=== PATIENT | male | born 2000 | race Two or more races ===

== ENCOUNTER 2021-01-17 13:40 | Emergency (ER) | payer OTHER ==
[2021-01-17] MEDS ORDERED: cefTRIAXone 2 GM in Sodium Chloride 0.9% 100 ML IV ONE (14:21)
--- NOTE | 2021-01-17 14:23 | EDM.PDOC ---
ED HPI GENERAL MEDICAL PROBLEM - General Chief Complaint: Skin Complaint Stated Complaint: ABSCESS ON INNER THIGH Time Seen by Provider: 01/17/21 14:21 Source of Information: Reports: Patient History Limitations: Reports: No Limitations - History of Present Illness INITIAL COMMENTS - FREE TEXT/NARRATIVE: 20-year-old male of [place] descent presents to the ED with painful red swelling left groin for the last 4 days. He believes that this started from a spider bite on the inferior mid medial thigh and then seemed to spread upwards. Currently has an area of cellulitis of the entire proximal anterior thigh up to his left groin with development of an abscess in this area. It is painful to walk. He has not ate or drank today. He has had some fever and chills last evening. No nausea or vomiting. He has a smaller lesion which is drying up on the distal lateral aspect of his right leg. He is unsure of his tetanus vaccine is up-to-date. Onset Date: 01/14/21 Duration: Day(s):, Getting Worse Location: Reports: Lower Extremity, Left (Development of cellulitis and abscess left inguinal area proximal left thigh) Quality: Reports: Ache, Throbbing Severity: Moderate Improves with: Reports: Rest Worsens with: Reports: Other Context: Reports: Other (Spontaneous abscess development possibly related to spider bite). Denies: Activity, Exercise (Worse with walking and with clothing rubbing on it.), Lifting, Sick Contact, Trauma Associated Symptoms: Reports: Rash (Cellulitis). 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.) Left Groin Pain Score (Numeric/FACES): 8 - Related Data Allergies Allergy/AdvReac Type Severity Reaction Status Date / Time No Known Allergies Allergy Verified 01/17/21 13:53 Home Meds: Home Meds Clindamycin HCl 300 mg PO TID #21 capsule 01/17/21 [Rx] Doxycycline [Vibra-Tabs] 100 mg PO Q12HR #20 tab 01/17/21 [Rx] oxyCODONE HCl/Acetaminophen [Percocet 5-325 mg Tablet] 1 - 2 each PO Q4H PRN #15 tablet 01/17/21 [Rx] Past Medical History - Past Health History Medical/Surgical History: Denies Medical/Surgical History Social & Family History - Family History Family Medical History: No Pertinent Family History - Tobacco Use Tobacco Use Status *Q: Never Tobacco User - Caffeine Use Caffeine Use: Reports: Energy Drinks - Recreational Drug Use Recreational Drug Use: No - Living Situation & Occupation Living situation: Reports: Single Occupation: Employed ED ROS GENERAL - Review of Systems Review Of Systems: See Below Constitutional: Reports: Fever, Chills, Malaise, Fatigue, Decreased Appetite. Denies: Weakness, Weight Loss HEENT: Reports: No Symptoms Respiratory: Reports: No Symptoms Cardiovascular: Reports: No Symptoms Endocrine: Reports: Fatigue GI/Abdominal: Reports: No Symptoms : Reports: No Symptoms Musculoskeletal: Reports: No Symptoms Skin: Reports: No Symptoms Neurological: Reports: No Symptoms Psychiatric: Reports: No Symptoms Hematologic/Lymphatic: Reports: No Symptoms Immunologic: Reports: No Symptoms ED EXAM, SKIN/RASH Exam: See Below Exam Limited By: No Limitations General Appearance: Alert, WD/WN, No Apparent Distress, Other (Temperature is 37.0 degrees. Heart rate 115 and sinus at the bedside. Respiratory is 18 with O2 sats 100% room air BP 128/81.) Eye Exam: Bilateral Eye: Normal Inspection, PERRL Throat/Mouth: Normal Inspection, Normal Lips, Normal Teeth, Normal Oropharynx Head: Atraumatic, Normocephalic Neck: Normal Inspection, Supple, Non-Tender, Full Range of Motion. No: Lymphadenopathy (L), Lymphadenopathy (R) Respiratory/Chest: No Respiratory Distress, Lungs Clear, Normal Breath Sounds, No Accessory Muscle Use Cardiovascular: Normal Peripheral Pulses, No Edema, No Gallop (Cardiac arrest.), No Murmur, Tachycardia Peripheral Pulses: 3+: Carotid (L), Carotid (R), Posterior Tibial (L), Posterior Tibial (R), Dorsalis Pedis (L), Dorsalis Pedis (R) GI/Abdominal: Normal Bowel Sounds, Soft, Non-Tender, No Organomegaly, No Mass (Moderately obese.), Pelvis Stable, Other (No surgical scars) Back Exam: Normal Inspection, Full Range of Motion. No: CVA Tenderness (L), CVA Tenderness (R) Extremities: Normal Inspection, No Pedal Edema, Other (Patient has pain left inguinal area at site of abscess formation along the inguinal fold. The area is very erythematous above and below the inguinal area with cellulitis spreading down to the mid medial left thigh.) Neurological: Alert, Oriented, CN II-XII Intact, Normal Cognition Psychiatric: Normal Affect, Normal Mood Skin: Warm, Dry, Erythema (Proximal left thigh from medial aspect up above the inguinal fold to involve the lower abdominal wall), Increased Warmth ( due to cellulitis), Other (Possible abscess or induration approximately 9010 cm in length and 4 cm in width with is quite tender. Dark to black spots suggestive of insect bite likely a spider on the medial aspect and over the area of abscess left inguinal area. As described above) Location, Skin: Upper Extremity, Left Characteristics: Confluent Associated features: Warmth, Tenderness, Swelling, Induration, Inflammation Course - Vital Signs Last Recorded V/S: Last Vital Signs Temp 37.0 C 01/17/21 13:49 Pulse 115 H 01/17/21 13:49 Resp 18 01/17/21 13:49 BP 128/81 01/17/21 13:49 Pulse Ox 100 01/17/21 13:49 - Orders/Labs/Meds Orders: Active Orders 24 hr Category Date Time Status Vaccines to be Administered [RC] PER UNIT ROUTINE Care 01/17/21 14:42 Active Dextrose 5%-0.9% NaCl [Dextrose 5%-Normal Saline] 1,000 Med 01/17/21 14:30 Active ml IV ASDIRECTED Medication Orders Dextrose/Sodium Chloride (Dextrose 5%-Normal Saline) 1,000 mls @ 150 mls/hr IV ASDIRECTED YING Last Admin: 01/17/21 14:41 Dose: 150 mls/hr [facility] Labs: Laboratory Tests 01/17/21 01/17/21 Range/Units 14:30 14:30 WBC 12.20 H (4.23-9.07) K/mm3 RBC 5.28 (4.63-6.08) M/mm3 Hgb 14.4 (13.7-17.5) gm/dl Hct 44.6 (40.1-51.0) % MCV 84.5 (79.0-92.2) fl MCH 27.3 (25.7-32.2) pg MCHC 32.3 (32.2-35.5) g/dl RDW Std Deviation 42.6 (35.1-43.9) fL Plt Count 286 (163-337) K/mm3 MPV 10.0 (9.4-12.3) fl Neutrophils % (Manual) 77 H (40-60) % Band Neutrophils % 0 (0-10) % Lymphocytes % (Manual) 15 L (20-40) % Atypical Lymphs % 0 % Monocytes % (Manual) 8 (2-10) % Eosinophils % (Manual) 0 L (0.8-7.0) % Basophils % (Manual) 0 L (0.2-1.2) Platelet Estimate Adequate RBC Morph Comment Normal Sodium 138 (136-145) mEq/L Potassium 4.1 (3.5-5.1) mEq/L Chloride 100 (98-107) mEq/L Carbon Dioxide 27 (21-32) mEq/L Anion Gap 15.1 H (5-15) BUN 12 (7-18) mg/dL Creatinine 1.4 H (0.7-1.3) mg/dL Est Cr Clr Drug Dosing 98.92 mL/min Estimated GFR (MDRD) > 60 (>60) mL/min BUN/Creatinine Ratio 8.6 L (14-18) Glucose 105 H (70-99) mg/dL Calcium 9.0 (8.5-10.1) mg/dL Total Bilirubin 1.0 (0.2-1.0) mg/dL AST 26 (15-37) U/L ALT 41 (16-63) U/L Alkaline Phosphatase 112 (46-116) U/L C-Reactive Protein 6.9 H* (<1.0) mg/dL Total Protein 7.9 (6.4-8.2) g/dl Albumin 3.8 (3.4-5.0) g/dl Globulin 4.1 gm/dL Albumin/Globulin Ratio 0.9 L (1-2) Meds: Medications Generic Name Dose Route Start Last Admin Trade Name Freq PRN Reason Stop Dose Admin Dextrose/Sodium Chloride 1,000 mls @ 150 mls/hr 01/17/21 14:30 01/17/21 14:41 Dextrose 5%-Normal Saline IV 150 mls/hr ASDIRECTED YING Administration Discontinued Medications Generic Name Dose Route Start Last Admin Trade Name Freq PRN Reason Stop Dose Admin Diphtheria/Tetanus/Acell Pertussis 0.5 ml 01/17/21 14:42 01/17/21 15:20 Diphtheria,Pertussis(Acell),Tetanus Vaccine 0.5 Ml Syringe IM 01/17/21 14:43 0.5 ml .ONCE ONE Administration Hydromorphone HCl 1 mg 01/17/21 14:35 01/17/21 15:36 Hydromorphone 1 Mg/Ml Syringe IVPUSH 01/17/21 14:36 Not Given ONETIME ONE Ceftriaxone Sodium 2 gm/ 100 mls @ 200 mls/hr 01/17/21 14:21 01/17/21 14:41 Sodium Chloride IV 01/17/21 14:50 200 mls/hr ONETIME ONE Administration Metoclopramide HCl 10 mg 01/17/21 14:35 01/17/21 14:45 Metoclopramide 10 Mg/2 Ml Sdv IVPUSH 01/17/21 14:36 10 mg ONETIME ONE Administration - Radiology Interpretation Free Text/Narrative:: 20-year-old male of [place] descent presents to the ED with obvious cellulitis left proximal thigh with abscess formation left inguinal fold. 2 black christianson are suggestive of spider bites that may have been the nidus for this infection. He is mildly ill with systemic symptoms of low-grade fever chills decreased appetite today. Redness started 4 days ago. It is painful to walk and he tried to go to work this morning but had to quit due to pain. Plan I have discussed the case with Dr. Waters on-call surgeon and he requests an ultrasound be done of the area to see if we can ice the stent of 5 to depth and length and then the appropriate management. Patient is hopeful that they can be done under local anesthetic due to cost and financial barriers. Tetanus diphtheria and pertussis vaccine will be updated today. IV will be D5 normal saline at 150 mils per hour since he has not yet ate or drank today. Given Reglan 10 mg IV and Dilaudid 1 mg IV for pain relief. - Re-Assessments/Exams Free Text/Narrative Re-Assessment/Exam: 01/17/21 15:13 Dr. Waters is here and will assess the patient from the point of view of ability to open up the abscess tentatively under local anesthetic. 01/17/21 15:46 Ultrasound reports diffuse soft tissue edema appreciated left inguinal area. There is a focal mixed echogenic and hypoechoic finding seen measuring 9 x 4 x 4 mm which correlates to a nodule. This could represent focal abscess. I am not sure whether this finding can be drained percutaneously. No additional abnormalities appreciated. Dr. Waters did assess the patient and agrees that this patient could be treated with IV antibiotics and then oral antibiotics and would not necessarily benefit from incision and drainage at this time. The amount of induration is suspicious for likely MRSA infection. Patient will therefore be covered with clindamycin 300 mg 3 times daily for 1 week and doxycycline 100 mg twice daily for 10 days. He will see Dr. Waters in clinic in 5 days time. Patient will continue Motrin 600 mg every 6 hours and I did write a prescription for Percocet tabs 325/ 5 mg strength 1 or 2 every 4-6 hours necessary for pain relief over the next couple of days for a total of 15 tablets. Departure - Departure Time of Disposition: 15:32 Disposition: Home, Self-Care 01 Condition: Fair Clinical Impression: Cellulitis and abscess of left leg - Discharge Information *PRESCRIPTION DRUG MONITORING PROGRAM REVIEWED*: Not Applicable *COPY OF PRESCRIPTION DRUG MONITORING REPORT IN PATIENT MIKI: Not Applicable Prescriptions: Clindamycin HCl 300 mg PO TID #21 capsule oxyCODONE HCl/Acetaminophen [Percocet 5-325 mg Tablet] 1 - 2 each PO Q4H PRN #15 tablet PRN Reason: pain relief. Doxycycline [Vibra-Tabs] 100 mg PO Q12HR #20 tab Referrals: PCP,None [Primary Care Provider] - Forms: ED Department Discharge Additional Instructions: Evaluation in the emergency room today in regards to large area of cellulitis involving the medial proximal aspect of your left thigh with a small 2.5 cm abscess in the left inguinal fold. Ultrasound reveals that it is not very deep and tentatively it will improve with antibiotics without need for incision and drainage. You were treated with a dose of Rocephin 2 g intravenously while in the emergency room. You will need to start oral antibiotic doxycycline and clindamycin at suppertime tonight. Doxycycline is to be taken twice daily with food for 10 days and clindamycin is 3 times daily for 1 week May use Motrin 600 mg every 6 hours to relieve pain and inflammation and fever. Pain medication is Percocet 5/3 2 5 mg strength 1 or 2 every 4-6 hours necessary for pain relief. Note you should not drive or operate machinery when you are taking the stronger pain medication. You are to make an appointment to follow-up with surgeon on or Monday of this upcoming week. Please phone [phone] to arrange an appointment. Sepsis Event Note (ED) - Evaluation Sepsis Screening Result: No Definite Risk - Focused Exam Vital Signs: Vital Signs Temp Pulse Resp BP Pulse Ox 01/17/21 13:49 37.0 C 115 H 18 128/81 100 - My Orders Last 24 Hours: My Active Orders 01/17/21 14:30 Dextrose 5%-0.9% NaCl [Dextrose 5%-Normal Saline] 1,000 ml IV ASDIRECTED 01/17/21 14:42 Vaccines to be Administered [RC] PER UNIT ROUTINE - Assessment/Plan Last 24 Hours: My Active Orders 01/17/21 14:30 Dextrose 5%-0.9% NaCl [Dextrose 5%-Normal Saline] 1,000 ml IV ASDIRECTED 01/17/21 14:42 Vaccines to be Administered [RC] PER UNIT ROUTINE
[2021-01-17] MEDS ORDERED: Dextrose 5%-0.9% NaCl 1,000 ML IV SCH (14:30)
[2021-01-17] MEDS ORDERED: Metoclopramide 10 MG/2 ML SDV IVPUSH ONE (14:35)
[2021-01-17] MEDS ORDERED: HYDROmorphone 1 MG/ML Syringe IVPUSH ONE (14:35)
[2021-01-17] MEDS ORDERED: Diphtheria,Pertussis(Acell),Tetanus Vaccine 0.5 ML Syringe IM ONE (14:42)
--- NOTE | 2021-01-17 15:28 | US ---
Left thigh ultrasound: Multiple real-time images of the left thigh were obtained. Diffuse soft tissue edema is seen. There is a focal mixed echogenic and hypoechoic finding seen measuring 9 x 4 x 4 mm which correlates to a nodule. This could represent focal abscess. I am not sure whether this finding can be drained percutaneously. No additional abnormality is appreciated. Impression: 1. Diffuse soft tissue edema presumably inflammatory in etiology. This occurs in the proximal thigh on the left side. 2. Small 1 cm abnormality presumably representing small abscess which is likely not able to be drained percutaneously given its echo pattern. Diagnostic code #3
--- NOTE | 2021-01-17 15:34 | PCM.CONS ---
H&P History of Present Illness - General Date of Service: 01/17/21 Source of Information: Patient History Limitations: Reports: No Limitations - History of Present Illness Initial Comments - Free Text/Narative: The patient developed a small area of pain on his left medial upper thigh 1 week ago. This got a little swollen but slowly dissipated but he developed another area or pain about 10 cm superior and lateral to the first, just 5 cm below the left inguinal areal. This has been getting worse in the past 3 days. It is hard, more painful. Patient has had chills but denies any fevers. It has now become harder to walk. He went to work today but could not walk due to pain so he came to the ED. In the ED vitals stable, WBC 12, no fevers. The area was concerned for an abscess, I was asked to see him Onset of Symptoms: Reports: Gradual Duration of Symptoms: Reports: Day(s): (3), Getting Worse Location: Reports: Upper Extremity, Left, Lower Extremity, Left Quality: Reports: Dull Severity: Moderate Improves with: Reports: Immobilization Worsens with: Reports: Movement Left Groin Pain Score (Numeric/FACES): 8 - Related Data Allergies/Adverse Reactions: Allergies Allergy/AdvReac Type Severity Reaction Status Date / Time No Known Allergies Allergy Verified 01/17/21 13:53 Home Medications: Home Meds . [No Known Home Meds] 01/17/21 [History] Past Medical History - Past Health History Medical/Surgical History: Denies Medical/Surgical History Social & Family History - Family History Family Medical History: No Pertinent Family History - Tobacco Use Tobacco Use Status *Q: Never Tobacco User - Caffeine Use Caffeine Use: Reports: Energy Drinks - Recreational Drug Use Recreational Drug Use: No - Living Situation & Occupation Living situation: Reports: Single Occupation: Employed H&P Review of Systems - Review of Systems: Review Of Systems: See Below General: Reports: Chills HEENT: Reports: No Symptoms Pulmonary: Reports: No Symptoms Cardiovascular: Reports: No Symptoms Gastrointestinal: Reports: No Symptoms Genitourinary: Reports: No Symptoms Musculoskeletal: Reports: No Symptoms Skin: Reports: No Symptoms Psychiatric: Reports: No Symptoms Neurological: Reports: No Symptoms Hematologic/Lymphatic: Reports: No Symptoms Exam - Exam Exam: See Below - Vital Signs Vital Signs: Last Vital Signs Temp 98.6 F 01/17/21 13:49 Pulse 115 H 01/17/21 13:49 Resp 18 01/17/21 13:49 BP 128/81 01/17/21 13:49 Pulse Ox 100 01/17/21 13:49 Weight: 159.12 kg - Exam General: Alert, Oriented, Cooperative Lungs: Normal Respiratory Effort Cardiovascular: Regular Rate, Regular Rhythm Extremities: Other (Left medial thigh has an area or erythema, induration is about 12 cm x 5 cm, no fluctuance, mild tenderness to palpation. The center of this indurated area has a scab resembling an insect bite.) - Patient Data Lab Results Last 24 hrs: Laboratory Results - last 24 hr 01/17/21 Range/Units 14:30 WBC 12.20 H (4.23-9.07) K/mm3 RBC 5.28 (4.63-6.08) M/mm3 Hgb 14.4 (13.7-17.5) gm/dl Hct 44.6 (40.1-51.0) % MCV 84.5 (79.0-92.2) fl MCH 27.3 (25.7-32.2) pg MCHC 32.3 (32.2-35.5) g/dl RDW Std Deviation 42.6 (35.1-43.9) fL Plt Count 286 (163-337) K/mm3 MPV 10.0 (9.4-12.3) fl Neutrophils % (Manual) 77 H (40-60) % Band Neutrophils % 0 (0-10) % Lymphocytes % (Manual) 15 L (20-40) % Atypical Lymphs % 0 % Monocytes % (Manual) 8 (2-10) % Eosinophils % (Manual) 0 L (0.8-7.0) % Basophils % (Manual) 0 L (0.2-1.2) Platelet Estimate Adequate RBC Morph Comment Normal Result Diagrams: 01/17/21 14:30 Sepsis Event Note - Evaluation Sepsis Screening Result: No Definite Risk - Focused Exam Vital Signs: Vital Signs Temp Pulse Resp BP Pulse Ox 01/17/21 13:49 98.6 F 115 H 18 128/81 100 Consult PN Assessment/Plan Problem List Initiated/Reviewed/Updated: No Plan: Patient has cellulitis. No large discrete abscess noted on my review of US images. Plan - PO antibiotics. Can be discharged home - I discussed with him to keep an eye on the area, he should start to have relief in 2-3 days. If it gets worse, then he should call my office. - Follow up with me in 1 week or sooner if symptoms worsen Discussed this plan with the patient and the Dr. Collins.
== END 2021-01-17 15:44 | disposition home or self-care (01) ==
LOC: JD.ED 13:40
DX: L03.116 Cellulitis of left lower limb (principal); L02.416 Cutaneous abscess of left lower limb; Z23 Encounter for immunization
CPT/HCPCS: 36415; 76881; 80053; 85007; 85027; 86140; 90471; 90715; 96365; 96375; 99284; J0696; J2765; J7042; 99283